=== PATIENT | male | born 1980 | race Caucasian/White ===

== ENCOUNTER 2022-04-20 05:50 | Day surgery (SDC) | payer OTHER ==
[2022-04-19 13:30] VITALS: BMI 28.2
[~2022-04-20 05:50] MED LIST: EPINEPHrine 0.3 MG in Ophthalmic Irrigation Solution 500 ML IRR SCH
[2022-04-20] MEDS ORDERED: Phenylephrine 2.5% Ophth Soln 5 ML BOT ONE (06:08)
[2022-04-20] MEDS ORDERED: Cyclopentolate 1% Opth Drop 2 ML BOT ONE (06:08)
[2022-04-20] MEDS ORDERED: FENTANYL 50 MCG/ML 1 ML VIAL ONE ×2 (06:41)
[2022-04-20] MEDS ORDERED: Midazolam HCl 2 mg/2 ml Vial ONE (06:41)
[2022-04-20] MEDS ORDERED: PROPOFOL 40 ML ONE (06:41)
[2022-04-20] MEDS ORDERED: Lidocaine 1% PF 5 ML VIAL ONE (07:13)
[2022-04-20] MEDS ORDERED: Maxitrol 0.1% Opth Oint 3.5 GM TUBE ONE (07:13)
[2022-04-20] MEDS ORDERED: Bupivacaine 0.75% 10 ML VIAL ONE (07:13)
[2022-04-20] MEDS ORDERED: CEFAZOLIN 1 GM VIAL ONE (07:13)
[2022-04-20] MEDS ORDERED: Lidocaine 4% PF 5 ML AMP ONE (07:13)
[2022-04-20] MEDS ORDERED: Triamcinolone 40 MG/ML VIAL ONE (07:13)
== END 2022-04-20 08:10 | disposition home or self-care (01) ==
LOC: SDC 05:50
PROVIDERS: ATTEND Ophthalmology Retina Specialist
PROC: 08T43ZZ Resection of Right Vitreous, Percutaneous Approach (ICD-10-PCS; principal; 2022-04-20)
PROC: 08NE3ZZ Release Right Retina, Percutaneous Approach (ICD-10-PCS; principal; 2022-04-20)
DX: H43.311 Vitreous membranes and strands, right eye (principal)
CPT/HCPCS: J0171; J0690; J2250; J2704; J3010; J3301; J3490